=== PATIENT | male | born 1955 | race Caucasian/White ===

== ENCOUNTER 2019-02-09 22:58 | Emergency (ER) | payer OTHER ==
[~2019-02-09] VITALS: Ht 182.9 cm; Wt 130.3 kg
[~2019-02-09 22:58] MED LIST: ALLP100T PO; GLIP10TA13 PO; HYDR1TAB PO; LOSA100T7 PO; LOVA10TA PO; LOVA20TA2 PO; NF-ESOM40C PO
[2019-02-09] MEDS ORDERED: KETOROLAC 30 MG/ML VIAL ONE (23:53)
[2019-02-10] MEDS ORDERED: KETOROLAC 30 MG/ML VIAL IVP ONE
--- NOTE | 2019-02-10 | ED Abdominal Pain ---
General Chief Complaint: Abdominal/GI Problems Stated Complaint: R SIDE ABD PAIN Source of Information: Patient Exam Limitations: No Limitations History of Present Illness Date Seen by Provider: Feb 09, 2019 Time Seen by Provider: 23:53 Initial Comments The patient presents to the ER with chief complaint of right lower abdominal quadrant pain 10/10 starting about 30-40 minutes prior to arrival. He did not take anything for discomfort and straight here. [facility] [place] [place] He does take blood pressure and cholesterol medicines as well as metformin and glipizide for diabetes but no other significant medical or surgical history. No colonoscopies or history of irritable bowel or inflammatory bowel disease. No fevers chills nausea sweats. No history of trauma. Last bowel movement was normal. No dysuria. Allergies and Home Medications Allergies Coded Allergies: Penicillins (Unverified Allergy, Unknown, 05/23/09) Home Medications Allopurinol 100 Mg Tablet, 1 TAB PO DAILY, (Reported) Esomeprazole Mag Trihydrate 40 Mg Capsule.dr, 40 MG PO DAILY Prescribed by: LISBETH ROLLINS on 12/23/13916 Glipizide 10 Mg Tablet, 1 EACH PO DAILY, (Reported) Losartan Potassium 100 Mg Tablet, 100 MG PO DAILY Prescribed by: LISBETH ROLLINS on 12/23/13916 Lovastatin 20 Mg Tablet, 1 EACH PO DAILY WITH SUPPER Prescribed by: LISBETH ROLLINS on 12/23/13915 Patient Home Medication List Home Medication List Reviewed: Yes Review of Systems Review of Systems Constitutional: No chills, No fever, No malaise EENTM: No Blurred Vision, No Double Vision, No Eye Tearing Respiratory: Denies Cough, Denies Shortness of Air Cardiovascular: Denies Chest Pain, Denies Edema Gastrointestinal: See HPI; Denies Abdomen Distended; Abdominal Pain; Denies Blood Streaked Stools, Denies Constipated, Denies Diarrhea, Denies Nausea Genitourinary: Denies Burning, Denies Discharge Musculoskeletal: No back pain, No joint pain Past Lyqblsb-Etughb-Ehnohw Hx Patient Social History Alcohol Use: Occasionally Uses Alcohol Beverage of Choice: Beer Recreational Drug Use: No Smoking Status: Never a Smoker Recent Foreign Travel: No Contact w/Someone Who Travel: No Immunizations Up To Date Tetanus Booster (TDap): Less than 5yrs PED Vaccines UTD: No Date of Pneumonia Vaccine: Sep 24, 2013 Date of Influenza Vaccine: May 24, 2013 Past Medical History Sleep Apnea Reproductive Disorders: No Arthritis, Gout Diabetes, Non-Insulin dep Eczema Adverse Reaction/Blood Tranf: No Physical Exam Vital Signs Capillary Refill : Height/Weight/BMI Height: 6'0.00" Weight: 287lbs. 3.2oz. [id number]; BMI Method:Stated General Appearance: WD/WN, moderate distress HEENT: normal ENT inspection, pharynx normal Neck: full range of motion, normal inspection Respiratory: lungs clear, normal breath sounds, no respiratory distress, no accessory muscle use Cardiovascular: normal peripheral pulses, regular rate, rhythm, no edema Peripheral Pulses: 2+ Dorsalis Pedis (R), 2+ Left Dors-Pedis (L) Gastrointestinal: soft, abnormal bowel sounds (quiescent); No rebound; tenderness (right lower quadrant tenderness), other (negative for Rovsing's or psoas sign. Negative for Dangelo sign.) Extremities: normal inspection, normal capillary refill Neurologic/Psychiatric: alert, normal mood/affect, oriented x 3 Skin: normal color, warm/dry Focused Exam Lactate Level 02/09/19 00:01: Lactic Acid Level 1.70 Lactic Acid Level Laboratory Tests Test 02/09/19 00:01 Lactic Acid Level 1.70 MMOL/L (0.50-2.00) Progress/Results/Core Measures Results/Orders Lab Results Laboratory Tests Test 02/09/19 00:01 02/09/19 23:20 02/09/19 23:30 Range/Units Lactic Acid Level 1.70 0.50-2.00 MMOL/L Urine Color YELLOW Urine Clarity SLIGHTLY CLOUDY Urine pH 5 5-9 Urine Specific [place] 1.025 H 1.016-1.022 Urine Protein NEGATIVE NEGATIVE Urine Glucose (UA) NEGATIVE NEGATIVE Urine Ketones NEGATIVE NEGATIVE Urine Nitrite NEGATIVE NEGATIVE Urine Bilirubin NEGATIVE NEGATIVE Urine Urobilinogen NORMAL NORMAL MG/DL Urine Leukocyte Esterase NEGATIVE NEGATIVE Urine RBC (Auto) 1+ H NEGATIVE Urine RBC 5-10 H /HPF Urine WBC RARE /HPF Urine Squamous Epithelial Cells 2-5 /HPF Urine Crystals NONE /LPF Urine Bacteria FEW H /HPF Urine Casts NONE /LPF Urine Mucus NEGATIVE /LPF Urine Culture Indicated NO White Blood Count 8.7 4.3-11.0 10^3/uL Red Blood Count 4.50 4.35-5.85 10^6/uL Hemoglobin 13.2 L 13.3-17.7 G/DL Hematocrit 40 40-54 % Mean Corpuscular Volume 88 80-99 FL Mean Corpuscular Hemoglobin 29 25-34 PG Mean Corpuscular Hemoglobin Concent 33 32-36 G/DL Red Cell Distribution Width 13.9 10.0-14.5 % Platelet Count 210 130-400 10^3/uL Mean Platelet Volume 11.9 H 7.4-10.4 FL Neutrophils (%) (Auto) 59 42-75 % Lymphocytes (%) (Auto) 25 12-44 % Monocytes (%) (Auto) 12 0-12 % Eosinophils (%) (Auto) 3 0-10 % Basophils (%) (Auto) 1 0-10 % Neutrophils # (Auto) 5.1 1.8-7.8 X 10^3 Lymphocytes # (Auto) 2.2 1.0-4.0 X 10^3 Monocytes # (Auto) 1.1 H 0.0-1.0 X 10^3 Eosinophils # (Auto) 0.3 0.0-0.3 10^3/uL Basophils # (Auto) 0.1 0.0-0.1 10^3/uL Sodium Level 139 135-145 MMOL/L Potassium Level 4.2 3.6-5.0 MMOL/L Chloride Level 106 98-107 MMOL/L Carbon Dioxide Level 19 L 21-32 MMOL/L Anion Gap 14 5-14 MMOL/L Blood Urea Nitrogen 22 H 7-18 MG/DL Creatinine 1.15 0.60-1.30 MG/DL Estimat Glomerular Filtration Rate > 60 BUN/Creatinine Ratio 19 Glucose Level 157 H 70-105 MG/DL Calcium Level 9.1 8.5-10.1 MG/DL Corrected Calcium 9.1 8.5-10.1 MG/DL Total Bilirubin 0.3 0.1-1.0 MG/DL Aspartate Amino Transf (AST/SGOT) 33 5-34 U/L Alanine Aminotransferase (ALT/SGPT) 29 0-55 U/L Alkaline Phosphatase 84 40-136 U/L C-Reactive Protein High Sensitivity 0.79 H 0.00-0.50 MG/DL Total Protein 7.1 6.4-8.2 GM/DL Albumin 4.0 3.2-4.5 GM/DL Lipase 30 8-78 U/L My Orders Orders - ERNESTINA SLOAN Ketorolac Injection (Toradol Injection) (02/10/19 00:00) Cbc With Automated Diff (02/09/19 23:56) Comprehensive Metabolic Panel (02/09/19 23:56) Hs C Reactive Protein (02/09/19 23:56) Blood Culture (02/09/19 23:56) Lactic Acid Analyzer (02/09/19 23:56) Lipase (02/09/19 23:56) Ua Culture If Indicated (02/09/19 23:56) Ketorolac Injection (Toradol Injection) (02/09/19 23:53) Ed Iv/Invasive Line Start (02/10/19 00:06) Ns Iv 1000 Ml (Sodium Chloride 0.9%) (02/10/19 00:06) Ct Abd/Pelvis Wo(Kidney Stone) (02/10/19 00:51) Urine Culture (02/10/19 01:22) Rocephin 1 Gm Iv (1x Dose) (02/10/19 01:30) Medications Given in ED Current Medications Medications Dose Ordered Sig/Roque Route Start Time Stop Time Status Last Admin Dose Admin Ketorolac Tromethamine 30 mg ONCE ONCE IVP 02/10/19 00:00 02/10/19 00:01 DC 02/09/19 22:33 30 MG Progress Progress Note #1: Time: 00:05 Progress Note Toradol for pain, liter of saline and labs including a lactate and blood culture. Consider colitis and/or appendicitis. Progress Note #2: Time: 00:53 Progress Note The Toradol brought the patient's pain down to a 2 out of 10. He has red blood cells in the urine. Plan to get a kidney stone study of the abdomen and pelvis. If we don't see evidence of a kidney stone and we may consider adding IV contrast. Diagnostic Imaging Diagonstic Imaging: CT (without contrast, kidney stone study) Plain Films/CT/US/NM/MRI: abdomen, pelvis Comments Right distal ureter calculus 3 mm Reviewed: Reviewed by Me Departure Impression Primary Impression: Ureteral calculus, right Disposition: 01 HOME, SELF-CARE Condition: Improved Departure-Patient Inst. Decision time for Depature: 01:25 Referrals: NO,LOCAL PHYSICIAN (PCP) Primary Care Physician SHARIF BALDWIN MD Patient Instructions: How to Strain Your Urine, Kidney Stones (DC) Add. Discharge Instructions: Drink lots of fluids, caffeine is acceptable. Use ibuprofen 800 mg every 8 hours as needed for pain. Use the hydrocodone one tablet every 6 hours as needed for pain. Use the Zofran 1 tablet every 6 hours as needed for nausea. Use the Flomax 1 tablet every evening until you pass a kidney stone as it will help flush the stone out. Use the Keflex one tablet twice a day with food for the next 5 days to prevent infection. If you have difficulty passing the stone over the weekend and call Dr. Baldwin, urology on Tuesday. All discharge instructions reviewed with patient and/or family. Voiced understanding. Scripts Ondansetron (Ondansetron Odt) 4 Mg Tab.rapdis 4 MG PO Q6H PRN for NAUSEA/VOMITING-1ST LINE, #10 TAB 0 Refills Prov: ERNESTINA SLOAN 02/10/19 Tamsulosin HCl (Flomax) 0.4 Mg Cap 0.4 MG PO HS for 7 Days, #7 CAP 0 Refills Prov: ERNESTINA SLOAN 02/10/19 Hydrocodone Bit/Acetaminophen (Hydrocodone/Acetaminophen 5/325mg Tablet) 1 Tab Tab 1 EACH PO Q4-6HR PRN for PAIN-MODERATE MDD 10, #15 TAB 0 Refills Prov: ERNESTINA SLOAN 02/10/19 Cephalexin (Cephalexin) 500 Mg Capsule 500 MG PO BID for 5 Days, #10 CAP 0 Refills Prov: ERNESTINA SLOAN 02/10/19 ERNESTINA SLOAN Feb 09, 2019 23:59
[2019-02-10] MEDS ORDERED: NS IV 1000 ML 1,000 ML IV SCH (00:06)
[2019-02-10 00:14] LABS: BASOPHILS # (AUTO) 0.1 10^3/uL (0.0-0.1); BASOPHILS % (AUTO) 1 % (0-10); EOSINOPHILS # (AUTO) 0.3 10^3/uL (0.0-0.3); EOSINOPHILS % (AUTO) 3 % (0-10); HEMATOCRIT 40 % (40-54); HEMOGLOBIN 13.2 G/DL (13.3-17.7); LYMPHOCYTES # (AUTO) 2.2 X 10^3 (1.0-4.0); LYMPHOCYTES % (AUTO) 25 % (12-44); MEAN CORPUSCULAR HEMOGLOBIN 29 PG (25-34); MEAN CORPUSCULAR HGB CONC 33 G/DL (32-36); MEAN CORPUSCULAR VOLUME 88 FL (80-99); MEAN PLATELET VOLUME 11.9 FL (7.4-10.4); MONOCYTES # (AUTO) 1.1 X 10^3 (0.0-1.0); MONOCYTES % (AUTO) 12 % (0-12); NEUTROPHILS # (AUTO) 5.1 X 10^3 (1.8-7.8); NEUTROPHILS % (AUTO) 59 % (42-75); PLATELET COUNT 210 10^3/uL (130-400); RED CELL DISTRIBUTION WIDTH 13.9 % (10.0-14.5); WHITE BLOOD COUNT 8.7 10^3/uL (4.3-11.0)
[2019-02-10 00:26] LABS: BILIRUBIN,URINE NEGATIVE (NEGATIVE); CLARITY,URINE SLIGHTLY CLOUDY; COLOR,URINE YELLOW; GLUCOSE, URINE (UA) NEGATIVE (NEGATIVE); KETONES,URINE NEGATIVE (NEGATIVE); LEUKOCYTE ESTERASE ,URINE NEGATIVE (NEGATIVE); NITRITE,URINE NEGATIVE (NEGATIVE); PH,URINE 5 (5-9); PROTEIN,URINE NEGATIVE (NEGATIVE); UROBILINOGEN,URINE NORMAL (NORMAL)
[2019-02-10 00:28] LABS: ALANINE AMINOTRANSFERASE 29 U/L (0-55); ALKALINE PHOSPHATASE 84 U/L (40-136); BILIRUBIN,TOTAL 0.3 MG/DL (0.1-1.0); BUN/CREATININE RATIO 19; CALCIUM 9.1 MG/DL (8.5-10.1); CARBON DIOXIDE 19 MMOL/L (21-32); CHLORIDE 106 MMOL/L (98-107); CREATININE SERUM 1.15 MG/DL (0.60-1.30); GFR ESTIMATED > 60; GLUCOSE 157 MG/DL (70-105); LIPASE 30 U/L (8-78); POTASSIUM 4.2 MMOL/L (3.6-5.0); SODIUM 139 MMOL/L (135-145); TOTAL PROTEIN 7.1 GM/DL (6.4-8.2)
[2019-02-10 00:50] LABS: BACTERIA,URINE FEW /HPF; WBC,URINE RARE /HPF
[2019-02-10] MEDS ORDERED: cefTRIAXone FOR IV USE 1,000 MG in WATER (STERILE) FOR INJECTION 10 ML IV ONE (01:30)
[2019-02-10] MEDS ORDERED: TAMS0.4C98 PO (01:33)
[2019-02-10] MEDS ORDERED: ACHD5005 PO (01:33)
[2019-02-10] MEDS ORDERED: ONDA4TAB11 PO (01:33)
[2019-02-10] MEDS ORDERED: CEPH500C PO (01:33)
--- OUTSIDE RECORDS SUMMARY | 2019-02-10 01:37 | XMS REPORT | Continuity of Care Document ---
Author Organization Unknown Address Unknown Allergies Active Description Code Type Severity Reaction Onset Reported/Identified Relationship to Patient Clinical Status Yes Penicillins [id number] Drug Allergy Unknown N/A 05/23/2009 Medications There is no data. Problems Date Dx Coded Attending Type Code Diagnosis Diagnosed By 12/23/2013 KAITY WILLS, BOBBI R Ot 250.00 12/23/2013 KAITY WILLS, BOBBI R Ot 272.4 12/23/2013 KAITY WILLS, BOBBI R Ot 274.9 12/23/2013 KAITY WILLS, BOBBI R Ot 278.00 12/23/2013 KAITY WILLS, BOBBI R Ot 327.23 12/23/2013 KAITY WILLS, BOBBI R Ot 401.9 12/23/2013 KAITY WILLS, BOBBI R Ot 496 12/23/2013 KAITY WILLS, BOBBI R Ot 530.81 12/23/2013 KAITY WILLS, BOBBI R Ot 716.90 12/23/2013 KAITY WILLS, BOBBI R Ot 786.59 12/23/2013 KAITY WILLS, BOBBI R Ot V17.49 12/23/2013 KAITY WILLS, BOBBI R Ot V85.39 06/20/2014 RAIN PRO BANKING CONSULTANT Ot 608.89 11/13/2014 ELIU KELLEY BANKING CONSULTANT Ot 368.9 11/13/2014 ELIU KELLEY BANKING CONSULTANT Ot 780.79 11/13/2014 ELIU KELLEY BANKING CONSULTANT Ot 784.0 11/13/2014 ISSAC WILLS, JEROMY Gómez Ot 786.50 11/13/2014 MAX HARRIS DO Ot 786.09 11/13/2014 RAIN PRO BANKING CONSULTANT Ot 608.89 12/03/2014 ELIU KELLEY BANKING CONSULTANT Ot 784.2 Procedures There is no data. Results There is no data. Encounters ACCT No. Visit Date/Time Discharge Status Pt. Type Provider Facility Loc./Unit Complaint [id number] 11/13/2014 09:19:00 11/13/2014 23:59:59 CLS Outpatient ELIU KELLEY [facility] RAD [id number] 06/05/2014 14:59:00 06/05/2014 23:59:59 CLS Outpatient RAIN PRO [facility] RAD [id number] 01/16/2014 08:28:00 01/16/2014 23:59:59 CLS Outpatient MAX HARRIS DO [facility] RT [id number] 12/24/2013 09:31:00 12/24/2013 23:59:59 CLS Outpatient ISSAC WILLS, JEROMY Gómez [facility] CARD [id number] 12/22/2013 10:42:00 12/23/2013 09:40:00 DIS Inpatient KAITY WILLS, BOBBI Ramsey [facility] ICU [id number] 12/14/2013 10:41:00 12/14/2013 23:59:59 CLS Outpatient ELIU KELLEY [facility] RAD 10/201601/10/2017 10:23:41 01/10/2017 23:59:59 CLS Outpatient Max Harris.
[2019-02-10 01:43] VITALS: BP 147/104
[2019-02-10] MEDS ORDERED: RX-HYDROCODONE/APAP 5/325 MG #4 TAB PK PO PRN (01:45)
[2019-02-10] MEDS ORDERED: RX-HYDROCODONE/APAP 5/325 MG #4 TAB PK PO ONE (03:30)
--- NOTE | 2019-02-10 06:41 | Diagnostic Imaging Report ---
PROCEDURE: CT urinary tract, rule out kidney stone. TECHNIQUE: Multiple contiguous axial images were obtained through the abdomen and pelvis without the use of intravenous contrast. Auto Exposure Controls were utilized during the CT exam to meet ALARA standards for radiation dose reduction. Indication: Right flank pain, new onset. Comparison: None. Discussion: 2-3 mm nodules are noted within the right lung base which are statistically benign. Consider followup for high risk patient. Normal heart size. No pleural or pericardial fluid. Mildly elevated right hemidiaphragm. The gallbladder, liver, pancreas, stomach, spleen, and adrenal glands are unremarkable. Punctate 2 mm nonobstructing left renal calculus. Mild right hydronephrosis and hydroureter secondary to a 3 mm stone within the distal right ureter. The urinary bladder is mostly decompressed. Prostate is normal in size. The large and small bowel loops, including the appendix, appear normal. Atherosclerotic plaque is noted throughout the aorta which is otherwise normal in caliber. No ascites or pathologically enlarged lymph nodes are identified. No acute osseous abnormality. Advanced degenerative disc disease noted at L5-S1. Small fat-containing periumbilical hernia. Impression: 1. Mild right hydronephrosis secondary to a 3 mm stone within the distal right ureter. Additional punctate nonobstructing left renal calculus. 2. Agree with preliminary report. Dictated by: Dictated on workstation # [id number]
== END 2019-02-10 01:46 | disposition home or self-care (01) ==
LOC: EDUNIT# 22:58 → ER 22:59
DX: N20.1 Calculus of ureter (principal); E11.9 Type 2 diabetes mellitus without complications; G47.30 Sleep apnea, unspecified; Z88.0 Allergy status to penicillin; Z79.84 Long term (current) use of oral hypoglycemic drugs
CPT/HCPCS: 36415; 74176; 80053; 81000; 83605; 83690; 85025; 86141; 87040; 87088; 96361; 96374; 96375

== ENCOUNTER 2019-02-13 15:08 | Emergency (ER) | payer OTHER ==
[~2019-02-13 15:08] MED LIST changes: +ACHD5005 PO; +CEPH500C PO; +ONDA4TAB11 PO; +TAMS0.4C98 PO
--- OUTSIDE RECORDS SUMMARY | 2019-02-13 15:12 | XMS REPORT | Continuity of Care Document ---
Author Organization Unknown Address Unknown Allergies Active Description Code Type Severity Reaction Onset Reported/Identified Relationship to Patient Clinical Status Yes Penicillins [id number] Drug Allergy Unknown N/A 05/23/2009 Medications There is no data. Problems Date Dx Coded Attending Type Code Diagnosis Diagnosed By 12/23/2013 KAITY WILLS, BOBBI R Ot 250.00 DIAB DANO WO COMPL, TYPE II OR UNSPEC TY 12/23/2013 BOBBI BRICENO MD R Ot 272.4 HYPERLIPIDEMIA NEC/NOS 12/23/2013 BOBBI BRICENO MD R Ot 274.9 GOUT NOS 12/23/2013 BOBBI BRICENO MD R Ot 278.00 OBESITY, NOS 12/23/2013 BOBBI BRICENO MD R Ot 327.23 OBSTRUCTIVE SLEEP APNEA (ADULT) (PEDIATR 12/23/2013 BOBBI BRICENO MD R Ot 401.9 HYPERTENSION NOS 12/23/2013 BOBBI BRICENO MD R Ot 496 CHR AIRWAY OBSTRUCT NEC 12/23/2013 BOBBI BRICENO MD R Ot 530.81 ESOPHAGEAL REFLUX 12/23/2013 BOBBI BRICENO MD R Ot 716.90 ARTHROPATHY NOS-UNSPEC 12/23/2013 BOBBI BRICENO MD R Ot 786.59 CHEST PAIN NEC 12/23/2013 BOBBI BRICENO MD R Ot V17.49 FAMILY HISTORY OF OTHER CARDIOVASCULAR D 12/23/2013 BOBBI BRICENO MD R Ot V85.39 BODY MASS INDEX 39.0-39.9, ADULT 06/20/2014 RAIN PRO SKEIN STRAIGHTENER Ot 608.89 11/13/2014 ELIU KELLEY SKEIN STRAIGHTENER Ot 368.9 11/13/2014 ELIU KELLEY SKEIN STRAIGHTENER Ot 780.79 11/13/2014 ELIU KELLEY SKEIN STRAIGHTENER Ot 784.0 11/13/2014 ISSAC WILLS, JEROMY Gómez Ot 786.50 11/13/2014 NATHALIA HARRIS DO S Ot 786.09 11/13/2014 RAIN PRO SKEIN STRAIGHTENER Ot 608.89 12/03/2014 ELIU KELLEY Cruz SKEIN STRAIGHTENER Ot 784.2 02/10/2019 ELIU KELLEY Cruz SKEIN STRAIGHTENER Ot 368.9 VISUAL DISTURBANCE NOS 02/10/2019 ELIU KELLEY Cruz SKEIN STRAIGHTENER Ot 780.79 OTH MALAISE FATIGUE 02/10/2019 DEMIJUANPABLO ELIU M SKEIN STRAIGHTENER Ot 784.0 HEADACHE 02/10/2019 JEROMY DAVENPORT MD Ot 786.50 CHEST PAIN NOS 02/10/2019 ROSALINDALUISITO NATHALIA COX S Ot 786.09 RESPIRATORY ABNORM NEC 02/10/2019 CORYSALEEMRAIN CARRANZA SKEIN STRAIGHTENER Ot 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 02/10/2019 ALLIE ELIU Cruz SKEIN STRAIGHTENER Ot 784.2 SWELLING IN HEAD NECK 02/10/2019 CHANDEMETRIUS ELIU M SKEIN STRAIGHTENER Ot 368.9 VISUAL DISTURBANCE NOS 02/10/2019 DEMIJUANPABLO ELIU Cruz SKEIN STRAIGHTENER Ot 780.79 OTH MALAISE FATIGUE 02/10/2019 DEMIJUANPABLO ELIU Cruz SKEIN STRAIGHTENER Ot 784.0 HEADACHE 02/10/2019 JEROMY DAVENPORT MD Ot 786.50 CHEST PAIN NOS 02/10/2019 NABIL HARRIS DOQUELINE S Ot 786.09 RESPIRATORY ABNORM NEC 02/10/2019 CORYSALEEMRAIN CARRANZA SKEIN STRAIGHTENER Ot 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 02/10/2019 CHANDEMETRIUS ELIU Cruz SKEIN STRAIGHTENER Ot 784.2 SWELLING IN HEAD NECK Procedures There is no data. Results Test Result Range Blood lactic acid measurement (moles/volume) - 02/09/19 00:01 Blood lactic acid measurement (moles/volume) 1.70 mmol/L 0.50- 2.00 Bacterial blood culture - 02/09/19 00:01 Bacterial blood culture NG NRG Complete urinalysis with reflex to culture - 02/09/19 23:20 Urine color determination YELLOW NRG Urine clarity determination SLIGHTLY CLOUDY NRG Urine pH measurement by test strip 5 5-9 Specific gravity of urine by test strip 1.025 1.016-1.022 Urine protein assay by test strip, semi-quantitative NEGATIVE NEGATIVE Urine glucose detection by automated test strip NEGATIVE NEGATIVE Erythrocytes detection in urine sediment by light microscopy 1+ NEGATIVE Urine ketones detection by automated test strip NEGATIVE NEGATIVE Urine nitrite detection by test strip NEGATIVE NEGATIVE Urine total bilirubin detection by test strip NEGATIVE NEGATIVE Urine urobilinogen measurement by automated test strip (mass/volume) NORMAL NORMAL Urine leukocyte esterase detection by dipstick NEGATIVE NEGATIVE Automated urine sediment erythrocyte count by microscopy (number/high power field) [HPF] NRG Automated urine sediment leukocyte count by microscopy (number/high power field) RARE NRG Bacteria detection in urine sediment by light microscopy FEW NRG Squamous epithelial cells detection in urine sediment by light microscopy 2-5 NRG Crystals detection in urine sediment by light microscopy NONE NRG Casts detection in urine sediment by light microscopy NONE NRG Mucus detection in urine sediment by light microscopy NEGATIVE NRG Complete urinalysis with reflex to culture NO NRG Bacterial urine culture - 02/09/19 23:20 Bacterial urine culture NG NRG Complete blood count (CBC) with automated white blood cell (WBC) differential - 02/09/19 23:30 Blood leukocytes automated count (number/volume) 8.7 10*3/uL 4.3-11.0 Blood erythrocytes automated count (number/volume) 4.50 10*6/uL 4.35-5.85 Venous blood hemoglobin measurement (mass/volume) 13.2 g/dL 13.3-17.7 Blood hematocrit (volume fraction) 40 % 40-54 Automated erythrocyte mean corpuscular volume 88 [foz_us] 80-99 Automated erythrocyte mean corpuscular hemoglobin (mass per erythrocyte) 29 pg 25-34 Automated erythrocyte mean corpuscular hemoglobin concentration measurement (mass/volume) 33 g/dL 32-36 Automated erythrocyte distribution width ratio 13.9 % 10.0- 14.5 Automated blood platelet count (count/volume) 210 10*3/uL 130-400 Automated blood platelet mean volume measurement 11.9 [foz_us] 7.4-10.4 Automated blood neutrophils/100 leukocytes 59 % 42-75 Automated blood lymphocytes/100 leukocytes 25 % 12-44 Blood monocytes/100 leukocytes 12 % 0-12 Automated blood eosinophils/100 leukocytes 3 % 0-10 Automated blood basophils/100 leukocytes 1 % 0-10 Blood neutrophils automated count (number/volume) 5.1 10*3 1.8-7.8 Blood lymphocytes automated count (number/volume) 2.2 10*3 1.0-4.0 Blood monocytes automated count (number/volume) 1.1 10*3 0.0- 1.0 Automated eosinophil count 0.3 10*3/uL 0.0-0.3 Automated blood basophil count (count/volume) 0.1 10*3/uL 0.0-0.1 Comprehensive metabolic panel - 02/09/19 23:30 Serum or plasma sodium measurement (moles/volume) 139 mmol/L 135-145 Serum or plasma potassium measurement (moles/volume) 4.2 mmol/L 3.6-5.0 Serum or plasma chloride measurement (moles/volume) 106 mmol/L 98-107 Carbon dioxide 19 mmol/L 21-32 Serum or plasma anion gap determination (moles/volume) 14 mmol/L 5-14 Serum or plasma urea nitrogen measurement (mass/volume) 22 mg/dL 7-18 Serum or plasma creatinine measurement (mass/volume) 1.15 mg/dL 0.60-1.30 Serum or plasma urea nitrogen/creatinine mass ratio 19 NRG Serum or plasma creatinine measurement with calculation of estimated glomerular filtration rate > NRG Serum or plasma glucose measurement (mass/volume) 157 mg/dL 70-105 Serum or plasma calcium measurement (mass/volume) 9.1 mg/dL 8.5-10.1 Serum or plasma total bilirubin measurement (mass/volume) 0.3 mg/dL 0.1-1.0 Serum or plasma alkaline phosphatase measurement (enzymatic activity/volume) 84 U/L 40-136 Serum or plasma aspartate aminotransferase measurement (enzymatic activity/volume) 33 U/L 5-34 Serum or plasma alanine aminotransferase measurement (enzymatic activity/volume) 29 U/L 0-55 Serum or plasma protein measurement (mass/volume) 7.1 g/dL 6.4-8.2 Serum or plasma albumin measurement (mass/volume) 4.0 g/dL 3.2-4.5 CALCIUM CORRECTED 9.1 mg/dL 8.5-10.1 Lipase - 02/09/19 23:30 Lipase 30 U/L 8-78 Serum or plasma C reactive protein measurement (mass/volume) - 02/09/19 23:30 Serum or plasma C reactive protein measurement (mass/volume) 0.79 mg/dL 0.00-0.50 Bacterial blood culture - 02/10/19 00:17 Bacterial blood culture NG NRG Encounters ACCT No. Visit Date/Time Discharge Status Pt. Type Provider Facility Loc./Unit Complaint [id number] 02/09/2019 22:59:00 02/10/2019 01:46:00 DIS Emergency LUTHER WILLS, ERNESTINA Gómez [facility] ER R SIDE ABD PAIN [id number] 11/13/2014 09:19:00 11/13/2014 23:59:59 CLS Outpatient ELIU KELLEY SKEIN STRAIGHTENER [facility] RAD RT NECK MASS [id number] 06/05/2014 14:59:00 06/05/2014 23:59:59 CLS Outpatient RAIN PRO SKEIN STRAIGHTENER [facility] RAD L SCROTAL MASS [id number] 01/16/2014 08:28:00 01/16/2014 23:59:59 CLS Outpatient NATHALIA HARRIS DO [facility] RT DYSPNEA [id number] 12/24/2013 09:31:00 12/24/2013 23:59:59 CLS Outpatient ISSAC WILLS, JEROMY Gómez [facility] CARD CP [id number] 12/22/2013 10:42:00 12/23/2013 09:40:00 DIS Inpatient KAITY WILLS, BOBBI Ramsey [facility] ICU CHEST PAIN [id number] 12/14/2013 10:41:00 12/14/2013 23:59:59 CLS Outpatient ELIU KELLEY SKEIN STRAIGHTENER [facility] RAD VISION CHANGES, WEAKNESS, CEPHALGIA, 10/201601/10/2017 10:23:41 01/10/2017 23:59:59 CLS Outpatient Nathalia Harris
--- NOTE | 2019-02-13 15:29 | NUR ---
PT TOLD REG THAT HE WILL SEE DR BALDWIN.
== END 2019-02-13 15:30 | disposition left against medical advice (07) ==
LOC: EDUNIT# 15:08 → ER 15:09
DX: R10.9 Unspecified abdominal pain (principal)

== ENCOUNTER 2020-02-26 17:08 | Emergency (ER) | payer OTHER ==
[~2020-02-26] VITALS: Ht 182.9 cm; Wt 131.5 kg
[~2020-02-26 17:08] MED LIST changes: -TAMS0.4C98 PO; +TMSL.4C PO
[2020-02-26] MEDS ORDERED: KETOROLAC 60 MG/2 ML VIAL IM ONE (18:00)
[2020-02-26] MEDS ORDERED: ORPHENADRINE 60 MG/2 ML (NORFLEX) AMP (ED ONLY) IM ONE (18:00)
--- NOTE | 2020-02-26 18:03 | ED Fall/Injury ---
General Chief Complaint: Trauma-Non Activation Stated Complaint: BACK AND ANKLE PAIN Nursing Triage Note: PT REPORTS FALLING ON HANDICAP RAMP AT HOUSE. PT REPORTS LEFT SIDED PAIN WITH ANKLE PAIN. PT FEELS LIKE HE HYPEREXTENDED HIS ANKLE WHEN HE FELL. COMPLAINING ON PAIN ALL OVER INCLUDING RIGHT WRIST THE LONGER ITS BEEN SINCE HE FELL. DENIES LOC, HITTING HEAD, OR NECK/BACK PAIN. Source: patient Exam Limitations: no limitations History of Present Illness Date Seen by Provider: Feb 26, 2020 Time Seen by Provider: 17:45 Initial Comments Patient arrives the ER by private conveyance from home with chief complaint half ago he was walking up the ramp of his home where it had just recently range and he lost his footing falling backwards with his left ankle pinned underneath him. He is having some pain and difficulty putting full pressure on his left ankle medially as well as pain in his low back paraspinous lumbar and low thoracic region. He says this is happened once before many years ago he threw his back out for a few weeks. He has no other significant history of trauma to his back surgeries or imaging of his back. He has not taken anything for the pain yet. He has no history of kidney or heart disease. No shortness of breath fever chills nausea vomiting diarrhea. No loss of control of bowel or bladder, numbness, radi ation of pain in his back, saddle anesthesia, weakness or falls subsequently. Location Injury Occurred: [facility] HOUSE Allergies and Home Medications Allergies Coded Allergies: Penicillins (Unverified Allergy, Unknown, 05/23/09) Home Medications Allopurinol 100 Mg Tablet, 1 TAB PO DAILY, (Reported) Cephalexin 500 Mg Capsule, 500 MG PO BID Prescribed by: ERNESTINA SLOAN on 02/10/19132 Esomeprazole Mag Trihydrate 40 Mg Capsule.dr, 40 MG PO DAILY Prescribed by: LISBETH ROLLINS on 12/23/13916 Glipizide 10 Mg Tablet, 1 EACH PO DAILY, (Reported) Hydrocodone Bit/Acetaminophen 1 Tab Tab, 1 EACH PO Q4-6HR PRN for PAIN-MODERATE Prescribed by: ERNESTINA SLOAN on 02/10/19132 Losartan Potassium 100 Mg Tablet, 100 MG PO DAILY Prescribed by: LISBETH ROLLINS on 12/23/13916 Lovastatin 20 Mg Tablet, 1 EACH PO DAILY WITH SUPPER Prescribed by: LISBETH ROLLINS on 12/23/13 0916 Ondansetron 4 Mg Tab.rapdis, 4 MG PO Q6H PRN for NAUSEA/VOMITING-1ST LINE Prescribed by: ERNESTINA SLOAN on 02/10/19 013 Tamsulosin HCl 0.4 Mg Cap, 0.4 MG PO HS Prescribed by: ERNESTINA SLOAN on 02/10/19 013 Patient Home Medication List Home Medication List Reviewed: Yes Review of Systems Review of Systems Constitutional: No chills, No diaphoresis Eyes: Denies Blindness, Denies Shadows Ears, Nose, Mouth, Throat: denies ear pain, denies nose pain Respiratory: No cough, No short of breath Cardiovascular: No chest pain, No palpitations Gastrointestinal: No abdominal pain, No constipation, No diarrhea, No nausea Genitourinary: No discharge, No dysuria Musculoskeletal: back pain; No gout; joint pain All Other Systems Reviewed Negative Unless Noted: Yes Past Hjhkdsi-Vmhoxb-Hfazxt Hx Patient Social History Alcohol Use: Rarely Uses Number of Drinks Today: AA Alcohol Beverage of Choice: Beer Recreational Drug Use: No Smoking Status: Never a Smoker Recent Foreign Travel: No Contact w/Someone Who Travel: No Recent Infectious Disease Expo: No Recent Hopitalizations: No Physical Abuse: No Sexual Abuse: No Mistreated: No Immunizations Up To Date Tetanus Booster (TDap): Less than 5yrs PED Vaccines UTD: No Date of Pneumonia Vaccine: Sep 24, 2013 Date of Influenza Vaccine: May 24, 2013 Seasonal Allergies Seasonal Allergies: No Past Medical History Surgeries: Yes Respiratory: Yes Sleep Apnea Cardiac: Yes Neurological: Yes Reproductive Disorders: No Gastrointestinal: No Musculoskeletal: No Arthritis, Gout Endocrine: Yes Diabetes, Non-Insulin dep Cancer: No Psychosocial: No Integumentary: Yes Eczema Blood Disorders: No Adverse Reaction/Blood Tranf: No Physical Exam Vital Signs Vital Signs - First Documented 02/26/20 17:28 Temp 36.4 Pulse 87 Resp 16 B/P (MAP) 128/82 (97) Pulse Ox 96 Capillary Refill : Less Than 3 Seconds Height, Weight, BMI Height: 6'0.00" Weight: 287lbs. 3.2oz. [id number]; 39.00 BMI Method:Stated General Appearance: WD/WN, mild distress HEENT: PERRL/EOMI, pharynx normal Neck: full range of motion, normal inspection Cardiovascular: normal peripheral pulses, regular rate, rhythm Respiratory: no respiratory distress, no accessory muscle use Peripheral Pulses: 2+ Dorsalis Pedis (R), 2+ Left Dors-Pedis (L), 2+ Radial Pulses (R), 2+ Radial Pulses (L) Back: normal inspection, no vertebral tenderness, muscle spasm (left of the high lumbar spine is tender to palpation with muscle spasms but no deformity or step-off.) Neurologic/Psychiatric: no motor/sensory deficits, alert, normal mood/affect, oriented x 3 Skin: normal color, warm/dry Rachell Coma Score Best Eye Response: (4) Open Spontaneously Best Verbal Response: (5) Oriented Best Motor Response: (6) Obeys Commands Crowley Total: 15 Progress/Results/Core Measures Results/Orders My Orders Orders - ERNESTINA SLOAN Ketorolac Injection (Toradol Injection) (02/26/20 18:00) Orphenadrine Inj (Ed Only) (Norflex Inje (02/26/20 18:00) Ankle, Left, 3 Views (02/26/20 17:56) Medications Given in ED Current Medications Medications Dose Ordered Sig/Roque Route Start Time Stop Time Status Last Admin Dose Admin Ketorolac Tromethamine 60 mg ONCE ONCE IM 02/26/20 18:00 02/26/20 18:01 DC 02/26/20 18:06 60 MG Orphenadrine Citrate 60 mg ONCE ONCE IM 02/26/20 18:00 02/26/20 18:01 DC 02/26/20 18:06 60 MG Vital Signs/I&O 02/26/20 17:28 Temp 36.4 Pulse 87 Resp 16 B/P (MAP) 128/82 (97) Pulse Ox 96 Blood Pressure Mean: 97 Progress Progress Note : Time: 18:01 Progress Note We discussed imaging risks, benefits and alternatives for his back. He agrees not to do imaging at this time as he has no red flag symptoms. Toradol and Norflex for his Symptoms. X-ray of the left ankle and a air splint. Diagnostic Imaging Diagonstic Imaging: Xray Plain Films/CT/US/NM/MRI: ankle (left) Comments NAME: MINH PALOMARES [facility] REC#: [id number] PT STATUS: REG ER : 1955 PHYSICIAN: ERNESTINA SLOAN MD ADMIT DATE: 02/26/20/ER Signed Date of Exam:02/26/20 ANKLE, LEFT, 3 VIEWS Indication: Fall with left ankle injury. Time of Exam: 6:16 PM 3 views of the left ankle were obtained. Ankle alignment is normal. Ankle mortise is well-maintained. Talar dome is smooth. No fracture or dislocation is identified. IMPRESSION: No acute bony abnormality is detected. Dictated by: Dictated on workstation # [id number] Dict: 02/26/201814 Trans: 02/26/201831 [facility] [id number] Interpreted by: JANNA BARAJAS MD Electronically signed by: JANNA BARAJAS MD 02/26/201831 Reviewed: Reviewed by Me Departure Impression Primary Impression: Fall (on)(from) incline, initial encounter Additional Impressions: Ankle sprain Qualified Codes: S93.402A - Sprain of unspecified ligament of left ankle, initial encounter Lumbago without sciatica Qualified Codes: M54.5 - Low back pain Disposition: 01 HOME, SELF-CARE Condition: Stable Departure-Patient Inst. Decision time for Depature: 18:14 Referrals: NO,LOCAL PHYSICIAN (PCP/Family) Primary Care Physician Patient Instructions: Low Back Pain (DC), Ankle Sprain Add. Discharge Instructions: Use the air stirrup splint for the first 1-2 weeks as necessary for stabilization of your left ankle. Afterwards you may downgrade to do simple elastic bandage such as Kurtis wrap for compression. Ice applied your low back and ankle for 20 minutes every 4 hours while awake as necessary for pain or swelling. Elevate your ankle above the level of your heart to reduce swelling and pain. Tylenol 1000 mg every 8 hours as necessary for pain. Aleve/Naproxen 2 tablets twice a day on a scheduled basis for the next 1-2 weeks to reduce pain and swelling. For muscle spasms in your back you may use cyclobenzaprine every 8 hours as necessary. Cyclobenzaprine will cause drowsiness and should not be mixed with alcohol or operating heavy machinery. Plan to follow up with your primary care doctor in the next 2-3 weeks if your symptoms are not improving significantly. All discharge instructions reviewed with patient and/or family. Voiced understanding. Scripts Cyclobenzaprine HCl (Cyclobenzaprine HCl) 10 Mg Tablet 10 MG PO Q8H PRN for SPASMS, #15 TAB 0 Refills Prov: ERNESTINA SLOAN 02/26/20 ERNESTINA SLOAN Feb 26, 2020 18:03
--- NOTE | 2020-02-26 18:19 | Diagnostic Imaging Report ---
Indication: Fall with left ankle injury. Time of Exam: 6:16 PM 3 views of the left ankle were obtained. Ankle alignment is normal. Ankle mortise is well-maintained. Talar dome is smooth. No fracture or dislocation is identified. IMPRESSION: No acute bony abnormality is detected. Dictated by: Dictated on workstation # [id number]
[2020-02-26] MEDS ORDERED: CYCL10TA9 PO (18:39)
[2020-02-26 18:46] VITALS: BP 128/82
== END 2020-02-26 18:46 | disposition home or self-care (01) ==
LOC: EDUNIT# 17:08 → ER 17:10
DX: S93.402A Sprain of unspecified ligament of left ankle, initial encounter (principal); M54.5 Low back pain; W10.2XXA Fall (on)(from) incline, initial encounter; G47.30 Sleep apnea, unspecified; M19.90 Unspecified osteoarthritis, unspecified site; M10.9 Gout, unspecified; E11.9 Type 2 diabetes mellitus without complications; L30.9 Dermatitis, unspecified; Y92.018 Other place in single-family (private) house as the place of occurrence of the external cause; Z88.0 Allergy status to penicillin; Z79.899 Other long term (current) drug therapy; Z79.84 Long term (current) use of oral hypoglycemic drugs
CPT/HCPCS: 73610

== ENCOUNTER 2022-02-06 11:43 | Emergency (ER) | payer OTHER ==
[~2022-02-06] VITALS: Ht 182.8 cm; Wt 124.5 kg
[~2022-02-06 11:43] MED LIST changes: +CYCL10TA25 PO
[2022-02-06 11:50] VITALS: BP 123/79
--- NOTE | 2022-02-06 12:18 | ED General ---
General Chief Complaint: Allergic Reaction Stated Complaint: ALLERGIC REACTION TO INJ R ARM Nursing Triage Note: TUESDAY HAD A PNEUMACOCCAL VACCINE AND SINCE HAS HAD INCREASED PAIN AND REDNESS IN LEFT ARM. Source of Information: Patient Exam Limitations: No Limitations History of Present Illness Date Seen by Provider: Feb 06, 2022 Time Seen by Provider: 12:14 Initial Comments Patient is a 66-year-old male who presents to the ED with a localized reaction to his left arm. Patient had a pneumococcal shot on . Had some mild pain and discomfort but started having some increasing pain that evening with some redness. Redness and swelling worse the day. Has been applying ice took 1 dose of Motrin. Denies any fever, chills, nausea, vomiting, diarrhea. He states he has had pneumococcal vaccines in the past without any previous reaction. Allergies and Home Medications Allergies Coded Allergies: Penicillins (Unverified Allergy, Unknown, 05/23/09) Patient Home Medication List Home Medication List Reviewed: Yes Allopurinol (Zyloprim) 100 Mg Tablet, 1 TAB PO DAILY, (Reported) Entered as Reported by: TISHA HERNÁNDEZ on 12/22/13 0832 Cephalexin (Cephalexin) 500 Mg Capsule, 500 MG PO BID Prescribed by: ERNESTINA SLOAN on 02/10/19 013 Cyclobenzaprine HCl (Cyclobenzaprine HCl) 10 Mg Tablet, 10 MG PO Q8H PRN for SPASMS Prescribed by: ERNESTINA SLOAN on 02/26/20 1839 Esomeprazole Mag Trihydrate (Nexium) 40 Mg Capsule.dr, 40 MG PO DAILY Prescribed by: LISBETH ROLLINS on 12/23/13916 Glipizide (Glipizide) 10 Mg Tablet, 1 EACH PO DAILY, (Reported) Entered as Reported by: TISHA HERNÁNDEZ on 12/22/13 0838 Hydrocodone Bit/Acetaminophen (Lortab 5 Mg Tablet) 1 Tab Tab, 1 EACH PO Q4-6HR PRN for PAIN-MODERATE Prescribed by: ERNESTINA SLOAN on 02/10/19 013 Losartan Potassium (Losartan Potassium) 100 Mg Tablet, 100 MG PO DAILY Prescribed by: LISBETH ROLLINS on 12/23/13 09 Lovastatin (Lovastatin 20 Mg) 20 Mg Tablet, 1 EACH PO DAILY WITH SUPPER Prescribed by: LISBETH ROLLINS on 12/23/13 0916 Ondansetron (Ondansetron Odt) 4 Mg Tab.rapdis, 4 MG PO Q6H PRN for NAUSEA/VOMITING-1ST LINE Prescribed by: ERNESTINA SLOAN on 02/10/19 013 Tamsulosin HCl (Flomax) 0.4 Mg Cap, 0.4 MG PO HS Prescribed by: ERNESTINA SLOAN on 02/10/19 013 Review of Systems Review of Systems Constitutional: No chills, No diaphoresis EENTM: No ear pain, No mouth pain, No mouth swelling, No throat pain, No throat swelling Respiratory: No cough Cardiovascular: No chest pain, No edema Gastrointestinal: No abdominal pain, No diarrhea, No nausea, No vomiting Genitourinary: No decreased output, No discharge Musculoskeletal: No back pain, No joint pain; muscle pain; No neck pain Skin: change in color All Other Systems Reviewed Negative Unless Noted: Yes Past Ciixrgd-Zqpdgh-Mkolaa Hx Patient Social History Tobacco Use?: No Use of E-Cig and/or Vaping dev: No Substance use?: No Alcohol Use?: Yes Alcohol type: Beer Alcohol Frequency: Rarely Pt feels they are or have been: No Immunizations Up To Date Tetanus Booster (TDap): Less than 5yrs PED Vaccines UTD: No First/Initial COVID19 Vaccinat: 10/01/20 Second COVID19 Vaccination Deep: 10/29/20 COVID19 Vaccine Whitesmith: BRI Seasonal Allergies Seasonal Allergies: No Past Medical History Surgeries: Yes Respiratory: Yes Sleep Apnea Cardiac: Yes Neurological: Yes Reproductive Disorders: No Gastrointestinal: No Musculoskeletal: No Arthritis, Gout Endocrine: Yes Diabetes, Non-Insulin dep Cancer: No Psychosocial: No Integumentary: Yes Eczema Blood Disorders: No Adverse Reaction/Blood Tranf: No Physical Exam Vital Signs Vital Signs - First Documented 02/06/22 11:50 Temp 35.8 Pulse 81 Resp 16 B/P (MAP) 123/79 (94) Pulse Ox 95 O2 Delivery Room Air Capillary Refill : Less Than 3 Seconds Height, Weight, BMI Height: 6'0.00" Weight: 287lbs. 3.2oz. 130.762313sf; 37.00 BMI Method:Stated General Appearance: No Apparent Distress, WD/WN Eyes: Bilateral Eye Normal Inspection, Bilateral Eye PERRL, Bilateral Eye EOMI HEENT: PERRL/EOMI, TMs Normal, Normal ENT Inspection, Pharynx Normal Neck: Full Range of Motion, Normal Inspection, Non Tender, Supple Respiratory: Chest Non Tender, Lungs Clear, Normal Breath Sounds, No Accessory Muscle Use, No Respiratory Distress Cardiovascular: Regular Rate, Rhythm, No Edema, No Gallop, No JVD, No Murmur Gastrointestinal: Normal Bowel Sounds, No Organomegaly, No Pulsatile Mass, Non Tender Back: Normal Inspection, No CVA Tenderness Extremity: Normal Capillary Refill, Normal Range of Motion Skin: Other (Erythema and swelling to the left tricep. Localized. Edematous. No function mass.) Progress/Results/Core Measures Suspected Sepsis SIRS Temperature: Pulse: 81 Respiratory Rate: 16 Blood Pressure 123 /79 Mean: 94 Results/Orders My Orders Orders - BRYAN REBOLLEDO Ibuprofen Tablet (Motrin Tablet) (02/06/22 12:30) Medications Given in ED Current Medications Medications Dose Ordered Sig/Roque Route Start Time Stop Time Status Last Admin Dose Admin Ibuprofen 800 mg ONCE ONCE PO 02/06/22 12:30 02/06/22 12:31 02/06/22 12:27 800 MG Vital Signs/I&O 02/06/22 11:50 Temp 35.8 Pulse 81 Resp 16 B/P (MAP) 123/79 (94) Pulse Ox 95 O2 Delivery Room Air Capillary Refill : Less Than 3 Seconds Blood Pressure Mean: 94 Departure Communication (PCP) Patient having a localized reaction secondary to pneumococcal vaccine. Does not appear infectious. Recommend ice anti-inflammatories. Normal active range of motion of left elbow and shoulder. If any worsening symptoms such as redness and swelling to return back to ED. Discussed with patient that this should improve. Does not appear anaphylaxis. Impression Primary Impression: Vaccine reaction Disposition: 01 HOME, SELF-CARE Condition: Stable Departure-Patient Inst. Decision time for Depature: 12:17 Referrals: [facility] [place] NO,LOCAL PHYSICIAN (PCP) Primary Care Physician Patient Instructions: Allergic Reaction ED Add. Discharge Instructions: Recommend Benadryl 25 to 50 mg every 6-8 hours. Ibuprofen 800 mg every 8 hours. Continue with ice. If any worsening redness swelling over the next 2 to 3 days return back to ED. All discharge instructions reviewed with patient and/or family. Voiced und erstanding. BRYAN REBOLLEDO Feb 06, 2022 12:18
[2022-02-06] MEDS ORDERED: IBUPROFEN 800 MG (MOTRIN) TAB PO ONE (12:30)
== END 2022-02-06 12:28 | disposition home or self-care (01) ==
LOC: EDUNIT# 11:43 → ER 11:45
DX: R60.0 Localized edema (principal); T50.A95A Adverse effect of other bacterial vaccines, initial encounter
CPT/HCPCS: 99283